=== PATIENT | male | born 1950 ===

== ENCOUNTER 2019-01-07 13:03 | Emergency (ER) | payer MEDICAID, OTHER ==
--- NOTE | 2019-01-07 13:43 | C.PDOC ---
History Of Present Illness 68 y/o male pt with hx of alcohol abuse brought to the ER by EMS for public intoxication. Pt is loud and cursing at staff. Pt denies any associated sx and currently has no complaint. Time Seen by Provider: 01/07/19 13:20 Chief Complaint (Nursing): Substance Abuse History Per: Patient History/Exam Limitations: no limitations Onset/Duration Of Symptoms: Hrs Current Symptoms Are (Timing): Still Present Modifying Factor(s): Alcohol Past Medical History Reviewed: Historical Data, Nursing Documentation, Vital Signs Vital Signs: Last Vital Signs Temp 97 F L 01/07/19 13:12 Pulse 91 H 01/07/19 13:12 Resp 20 01/07/19 13:12 BP 140/81 01/07/19 13:12 Pulse Ox 96 01/07/19 13:12 - Medical History PMH: HTN - [facility] Procedures ALCOHOL DETOXIFICATION (05/10/15) Family History: States: Unknown Family Hx - Social History Hx Tobacco Use: Yes Hx Alcohol Use: Yes Hx Substance Use: No - Immunization History Hx Tetanus Toxoid Vaccination: No Hx Influenza Vaccination: No Hx Pneumococcal Vaccination: No Review Of Systems Except As Marked, All Systems Reviewed And Found Negative. Constitutional: Positive for: Other (public intoxication ) Gastrointestinal: Negative for: Nausea, Vomiting, Abdominal Pain, Diarrhea Genitourinary: Negative for: Dysuria, Frequency Neurological: Negative for: Weakness, Numbness Physical Exam - Physical Exam Appears: Non-toxic, No Acute Distress, Other (argumentative; incoherent ) Skin: Warm, Dry Head: Atraumatic, Normacephalic Eye(s): bilateral: Normal Inspection Nose: Normal Oral Mucosa: Moist, Other (alcohol on breath ) Chest: Symmetrical Cardiovascular: Rhythm Regular Respiratory: Normal Breath Sounds Gastrointestinal/Abdominal: Soft, No Tenderness Neurological/Psych: Oriented x3, Normal Speech Gait: Unsteady ED Course And Treatment O2 Sat by Pulse Oximetry: 96 (RA) Pulse Ox Interpretation: Normal Progress Note: restrained for his safety and falls precautions Reevaluation Time: 17:08 Reassessment Condition: Improved (clincally sober and stable gait, wants immediate d/c) Medical Decision Making Medical Decision Making: pending sobriety Disposition Doctor Will See Patient In The: Office Counseled Patient/Family Regarding: Studies Performed, Diagnosis - Disposition Disposition: HOME/ ROUTINE Disposition Time: 17:08 Condition: GOOD Forms: [facility] (Chilean) - Clinical Impression Clinical Impression: Alcohol abuse with intoxication - Scribe Statement The provider has reviewed the documentation as recorded by the Aroldoibe Ijeoma Villa Provider Attestation: All medical record entries made by the Aroldoibe were at my direction and personally dictated by me. I have reviewed the chart and agree that the record accurately reflects my personal performance of the history, physical exam, medical decision making, and the department course for this patient. I have also personally directed, reviewed, and agree with the discharge instructions and disposition.
[2019-01-07 17:17] VITALS: BP 140/80; PULSE 78; RESP 20; TEMP 98; O2SAT 98
== END 2019-01-07 17:31 | disposition home or self-care (01) ==
LOC: C.ER 13:03
DX: F10.129 Alcohol abuse with intoxication, unspecified (principal)

== ENCOUNTER 2019-01-14 23:00 | Emergency (ER) | payer SELFPAY ==
--- NOTE | 2019-01-14 23:15 | C.PDOC ---
History Of Present Illness 68 yr old male w/ hx of etoh abuse, HTN p/w etoh intoxication. Pt was brought in by churchgoers / friends for etoh detox. He denies any fall or trauma. He notes mild epigastric pain from drinking today. He notes he only has this pain when he drinks alcochol. He denies any worsening of the chronic abdominal pain. He denies any dark or bloody stool, nausea, vomiting or diarrhea. No dark or bloody stool. Denies any SI / HI or depression. No fever, chills or night sweats. No new medications per pt. No other complaints. Time Seen by Provider: 01/14/19 23:14 Chief Complaint (Nursing): Substance Abuse Past Medical History Vital Signs: Last Vital Signs Temp 98.3 F 01/14/19 23:07 Pulse 89 01/14/19 23:07 Resp 16 01/14/19 23:07 BP 154/97 H 01/14/19 23:07 Pulse Ox 97 01/14/19 23:07 - Medical History PMH: HTN Denies: HIV, Seizures, Sexually Transmitted Disease - [facility] Procedures ALCOHOL DETOXIFICATION (05/10/15) Family History: States: Unknown Family Hx - Social History Hx Tobacco Use: Yes Hx Alcohol Use: Yes Hx Substance Use: No - Immunization History Hx Tetanus Toxoid Vaccination: No Hx Influenza Vaccination: No Hx Pneumococcal Vaccination: No Review Of Systems Constitutional: Negative for: Fever, Chills, Weakness, Malaise Eyes: Negative for: Pain, Vision Change, Eyelid Inflammation ENT: Negative for: Ear Pain, Ear Discharge, Nose Pain, Nose Congestion, Mouth Swelling Cardiovascular: Negative for: Chest Pain, Palpitations, Orthopnea, Paroxysmal Noc. Dyspnea, Edema, Light Headedness Respiratory: Negative for: Cough, Shortness of Breath, Hemoptysis, SOB with Excertion, Pleuritic Pain, Sputum Gastrointestinal: Positive for: Abdominal Pain. Negative for: Nausea, Vomiting, Diarrhea, Constipation, Melena, Hematochezia, Hematemesis, Rectal Pain Genitourinary: Negative for: Dysuria, Frequency, Hematuria, Penile Discharge Musculoskeletal: Negative for: Neck Pain, Shoulder Pain Skin: Negative for: Rash Neurological: Negative for: Weakness, Numbness, Confusion Psych: Negative for: Anxiety, Psychosis Physical Exam - Physical Exam Appears: Well, Non-toxic, No Acute Distress Skin: Normal Color, Warm Head: Atraumatic, Normacephalic Eye(s): bilateral: Normal Inspection, PERRL, EOMI Ear(s): Bilateral: Normal Nose: Normal Oral Mucosa: Moist Tongue: Normal Appearing Lips: Normal Appearing Teeth: No Avulsed Gingiva: No Erythema, No Tender Throat: Normal, No Erythema, No Exudate Neck: Normal, Normal ROM, Other (no meningeal signs) Chest: Symmetrical Cardiovascular: Rhythm Regular Respiratory: Normal Breath Sounds, No Rales, No Rhonchi, No Stridor, No Wheezing Gastrointestinal/Abdominal: Normal Exam, Soft, No Tenderness Back: Normal Inspection, No CVA Tenderness, No Vertebral Tenderness, No Decreased ROM, No Paraspinal Tenderness Extremity: Normal ROM, No Tenderness, No Calf Tenderness Neurological/Psych: Oriented x3, Normal Speech, Normal Cognition, No Cerebellar Signs, Normal Motor Gait: Steady ED Course And Treatment - Laboratory Results Result Diagrams: 01/14/19 23:48 01/14/19 23:48 O2 Sat by Pulse Oximetry: 97 Medical Decision Making Medical Decision Makin yr old male w/ hx of HTN, ETOH abuse p/w request for detox and epigastric pain. Pt in NAD. Exam largely unremarkable. ETOH smell noted on breath. No fall or signs of trauma noted. No signs of with drawal. Given presumed etoh intox state and complaint of abd pain will seek imaging. 1202 etoh level unremarkable Pt in NAD denies any other ingestion pending imaging, labs [address] no elevated WBC, abd non-ttp likely alcoholic gastritis. no indication for abx Medically clear. 0144 pending crisis eval 0410 No signs of etoh withdrawal, stable gait pt remains in NAD, abd non-ttp, no peritoneal signs. Cleared by CRISIS, given outpatient resources, clear for d/c home with return indications and followup pt agreeable to plan Disposition - Disposition Referrals: Mathew Shore MD [Staff Provider] - [facility] [Outside] [facility] [Outside] [facility] [Outside] Disposition: HOME/ ROUTINE Disposition Time: 01:13 Condition: GOOD Additional Instructions: DEONNA MEZA, thank you for letting us take care of you today. Your provider was Chaparro Greenwood and you were treated for SUBSTANCE ABUSE. The emergency medical care you received today was directed at your acute symptoms. If you were pres cribed any medication, please fill it and take as directed. It may take several days for your symptoms to resolve. Return to the Emergency Department if your symptoms worsen, do not improve, or if you have any other problems. Please contact your doctor or call one of the physicians/clinics you have been referred to that are listed on the Patient Visit Information form that is included in your discharge packet. Bring any paperwork you were given at discharge with you along with any medications you are taking to your follow up visit. Our treatment cannot replace ongoing medical care by a primary care provider outside of the emergency department. Thank you for allowing the [facility] team to be part of your care today. If you had an X-Ray or CT scan: A Radiologist will review the ED reading if any change in treatment is needed we will contact you. If you had a blood, urine, or wound culture: It will take several days for the results, if any change in treatment is needed we will contact you. If you had an STI test: It will take 48 hours for the results. Please call after 1 week if you have not heard back. Instructions: Gastritis (DC), Alcohol Use - When Is Drinking a Problem? Forms: [employer] (Korean), [employer] (Thai) Print Language: TURKISH - Clinical Impression Clinical Impression: Alcoholic gastritis, Gastritis
[2019-01-14 23:51] LABS: BASO # 0.1 K/uL (0.0-0.2); EOS # 0.1 K/uL (0.0-0.7); EOS % 1.7 % (0.0-4.0); HEMOGLOBIN 13.5 g/dL (12.0-18.0); LYMPH # 1.8 K/uL (1.0-4.3); LYMPH % 33.5 % (20.0-40.0); MEAN CELL VOLUME 94.8 fL (80.0-94.0); MEAN CORPUSCULAR HEMOGLOBIN 31.4 pg (27.0-31.0); MEAN CORPUSCULAR HGB CONC 33.1 g/dL (33.0-37.0); MEAN PLATELET VOLUME 8.9 fL (7.2-11.7); MONO # 0.4 K/uL (0.0-0.8); MONO % 8.5 % (0.0-10.0); NEUT # 2.9 K/uL (1.8-7.0); NEUT % 55.3 % (50.0-75.0); NRBC % 0.1 % (0.0-2.0); RBC 4.31 Mil/uL (4.40-5.90); RED CELL DISTRIBUTION WIDTH 15.4 % (11.5-14.5); WHITE BLOOD COUNT 5.3 K/uL (4.8-10.8)
[2019-01-15 00:01] LABS: ALB/GLOB RATIO 1.5 (1.0-2.1); ALBUMIN 4.7 g/dL (3.5-5.0); ALT/SGPT 9 U/L (21-72); AST/SGOT 19 U/L (17-59); BLOOD UREA NITROGEN 18 mg/dL (9-20); CALCIUM 9.6 mg/dl (8.6-10.4); GFR NON-AFRICAN AMERICAN > 60; LIPASE 58 U/L (23-300)
[2019-01-15 00:07] LABS: ACETAMINOPHEN < 10.0 ug/mL (10.0-30.0); SALICYLATE < 1.0 mg/dL 1
[2019-01-15] MEDS ORDERED: Iodixanol 320 MG/ML 100 ML BOTTLE IV ONE (00:09)
[2019-01-15 00:40] LABS: URINE BILIRUBIN NEGATIVE (NEGATIVE); URINE BLOOD NEGATIVE (NEGATIVE); URINE CALCIUM OXALATE CRYSTALS FEW /hpf (<OCC); URINE CLARITY Hazy (Clear); URINE COLOR Yellow (YELLOW); URINE GLUCOSE (UA) NORMAL (Normal); URINE LEUKOCYTE ESTERASE NEG Leu/uL (Negative); URINE PROTEIN 2+ mg/dL (NEGATIVE)
[2019-01-15 01:12] LABS: BARBITURATES, UR NEGATIVE (NEGATIVE); BENZODIAZEPINES, UR NEGATIVE (NEGATIVE); OPIATES, UR NEGATIVE (NEGATIVE); PHENCYCLIDINE, UR NEGATIVE (NEGATIVE)
[2019-01-15 03:43] VITALS: RESP 20
[2019-01-15 05:39] VITALS: BP 141/66; PULSE 78; TEMP 97.6; O2SAT 98
--- NOTE | 2019-01-15 13:53 | CT ---
Date of service: 01/15/2019 PROCEDURE: CT Abdomen and Pelvis with contrast HISTORY: epigastric pain COMPARISON: None. TECHNIQUE: Contrast dose: 100 mL Visipaque 320 Radiation dose: Total exam DLP = 1111.28 mGy-cm. This CT exam was performed using one or more of the following dose reduction techniques: Automated exposure control, adjustment of the mA and/or kV according to patient size, and/or use of iterative reconstruction technique. FINDINGS: LOWER THORAX: Cardiomegaly. Coronary arterial and valvular calcifications. Bibasilar atelectasis. No focal consolidation or pleural effusion. LIVER: Diffuse hepatic steatosis. Inferior right hepatic lobe cyst. No gross lesion or ductal dilatation. GALLBLADDER AND BILE DUCTS: Unremarkable. PANCREAS: Unremarkable. No gross lesion or ductal dilatation. SPLEEN: Unremarkable. ADRENALS: Unremarkable. No mass. KIDNEYS AND URETERS: Unremarkable. No hydronephrosis. No solid mass. VASCULATURE: Unremarkable. No aortic aneurysm. No aortic atherosclerotic calcification or mural plaque present. BOWEL: Unremarkable. No obstruction. No gross mural thickening. APPENDIX: Normal appendix. PERITONEUM: Small fat containing umbilical hernia. Small right fat containing inguinal hernia. No free fluid. No free air. LYMPH NODES: Unremarkable. No enlarged lymph nodes. BLADDER: Unremarkable. REPRODUCTIVE: Prostatomegaly. BONES: L5-S1 degenerative changes. No acute fracture. OTHER FINDINGS: None. IMPRESSION: No acute abdominal pelvic pathology. Nonacute findings as above.
== END 2019-01-15 05:39 | disposition home or self-care (01) ==
LOC: C.ER 23:00
DX: K29.20 Alcoholic gastritis without bleeding (principal); I10 Essential (primary) hypertension; Z72.0 Tobacco use
CPT/HCPCS: 74177; 80053; 81001; 83690; 83735; 84100; 85025; 96374; 99285; G0480; Q9967